=== PATIENT | female | born 1980 | race Caucasian/White ===

== ENCOUNTER → 2017-02-13 | Outpatient (CLI) | payer OTHER | LOC: MW.CHIM 10:59 | PROVIDERS: ATTEND Internal Medicine | DX: I44.7 Left bundle-branch block, unspecified (principal) | CPT/HCPCS: 93005 ==

== ENCOUNTER → 2017-02-22 | Outpatient (CLI) | payer OTHER ==
--- NOTE | 2017-02-26 11:31 | ECHO ---
EXAM DATE: 02/22/17 PATIENT'S AGE: 36 The echocardiogram report can be seen in this patient's EMR (Electronic Medical Record) in the Reports section. WILBERT
== END ==
LOC: MW.US 12:55
PROVIDERS: ATTEND Internal Medicine
DX: I44.7 Left bundle-branch block, unspecified (principal); I36.1 Nonrheumatic tricuspid (valve) insufficiency; Z13.6 Encounter for screening for cardiovascular disorders
CPT/HCPCS: 93306

== ENCOUNTER → 2017-03-01 | Outpatient (CLI) | payer OTHER ==
--- NOTE | 2017-03-01 08:23 | PCM.PRNOTE ---
- Free Text/Narrative Note: Exercise MIBI Indication LBBB Sestamibi Tc99 25 MCi was given at the peak HR Patient was brought to the stress test lab in postabsorptive state verbal and paper consent was obtained from patient Vital signs at resting state blood pressure of 122/82 with a heart rate of 115 EKG shows sinus rhythm cLBBB Maximal heart rate of 173 and target heart rate is 155 Patient reached the target heart rate, completed stage III Rajeev protocol Peak blood pressure is 150/80 Total exercise time of 8.01 minutes EKG cLBBB SR METS 10.1 No symptom of chest pain or feeling dizzy Impression Normal hemodynamics, normal chronotropic, excellent exercise capacity, negative for ischemia on EKG Plan Nuclear portion pending
--- NOTE | 2017-03-01 11:40 | NM ---
EXAMINATION: Nuclear medicine myocardial perfusion study with exercise stress test. HISTORY: Left bundle branch block. PROCEDURE: Patient exercised according to Rajeev protocol for 8 minutes and 1 seconds and achieved maximal heart rate of 173 beats per minute. Adequate exercise. Following intravenous administration of 27 mCi of technetium 99m sestamibi, stress and rest SPECT i mages including gating imaging was performed. FINDINGS: Stress and rest myocardial SPECT images demonstrates mildly decreased uptake along the anterior wall from midportion to the base and along the entire septal wall to the apex. Review of gated images demonstrates hypokinesis to. Dr. Guerrier movement within the septal wall. The l eft ventricular ejection fraction is 44 %. The left ventricular chamber size is normal. IMPRESSION: 1. Mildly decreased uptake along the anterior and septal sutton. Correlate with rest imaging. 2. Normal ventricular chamber size with ejection fraction of 44 %.
== END ==
LOC: MW.NM 06:30
PROVIDERS: ATTEND Internal Medicine
DX: I44.7 Left bundle-branch block, unspecified (principal); Z13.6 Encounter for screening for cardiovascular disorders
CPT/HCPCS: 78451; 93017; A9500